=== PATIENT | male | born 1935 | race Caucasian/White ===

== ENCOUNTER 2017-04-29 13:52 | Day surgery (SDC) | payer MEDICARE, OTHER ==
[~2017-04-29] VITALS: Ht 172.7 cm; Wt 90.7 kg
[~2017-04-29 13:52] MED LIST: ASPIRIN EC325 MG PO; ATENOLOL25 MG PO; CARVEDILOL6.25 MG PO; FINASTERIDE5 MG PO; FISH OIL CONCEN1 SGL PO; IMODIUM2 MG PO; LIPITOR10 MG PO; LISINOPRIL 10MG10 MG PO; MAPAP EXTRA ST500 M1 PO; OCUVITE1 TA1 PO; RANITIDINE300 MG PO; VITAMIN D1000 IU PO; ZOFRAN4 MG PO
--- OUTSIDE RECORDS SUMMARY | 2017-04-29 14:01 | External Medical Summary Rpt | CCD ---
Author Author , LARRY JUAREZ Address Unknown Phone [email or web address] Support Name Relationship Address Phone ERSO, Next Of Kin [address] [place], [phone] [place] [address] Purpose Continuity of Care Document - 09-15-2012 through 2016 Allergies, Adverse Reactions, Alerts Type Allergy to substance Adverse Reaction to Substance Substance Reaction Severity NO KNOWN ALLERGIES Unknown Unknown Medications Na ND Rx Da Fi Fi Am Da Di Ph RX Ph St me C No te ll ll ou ys ag ar # ys at rm s nt no ma ic us Or Da si cy ia de te s n re d LI 63 04 0 No DO 32 -2 CA 30 0- Lo IN 20 20 ng E 11 13 er HC 0 L Ac 1% ti ve AL Vital Signs 09-15-2012 20:35 Name Value Interpretat Reference Comment ion Range BP 85 mm[Hg] Diastolic BP Systolic 147 mm[Hg] Heart 78 /min Rate/Pulse O2% 96 % Respiratory 20 /min Rate Encounters Encounter Start End Date Code Location Performer Type Date Emergency JESSICA Garcia MD (ER) 3 20:14 3 20:36 [facility]
--- OUTSIDE RECORDS SUMMARY | 2017-04-29 14:01 | External Medical Summary Rpt | CCD ---
Demographics Preferred Language Malay Marital Status Unknown Gnosticist Affiliation Unknown Race Unknown Ethnic Group Unknown Author Author , ELLEN JUAREZ Address Unknown Phone Immunization No patient found.
--- OUTSIDE RECORDS SUMMARY | 2017-04-29 14:01 | External Medical Summary Rpt | CCD ---
Demographics Preferred Language Greenlandic Marital Status Unknown Jainism Affiliation Unknown Race Unknown Ethnic Group Unknown Author Author , ELLEN JUAREZ Address Unknown Phone Immunization No patient found.
--- OUTSIDE RECORDS SUMMARY | 2017-04-29 14:01 | External Medical Summary Rpt ---
Author Author LARRY Rico, [employer] Organization [employer] Address Unknown Phone Unavailable
--- OUTSIDE RECORDS SUMMARY | 2017-04-29 14:01 | External Medical Summary Rpt | CCD ---
Author Author , LARRY JUAREZ Address Unknown Phone [email or web address] Support Name Relationship Address Phone EROS, Next Of Kin [address] [place] [address], [phone] [place] [address] Purpose Continuity of Care Document - 09-15-2012 [...] Garcia MD (ER) 3 20:14 3 20:36 [facility]
--- OUTSIDE RECORDS SUMMARY | 2017-04-29 14:01 | External Medical Summary Rpt | CCD ---
Author Author [employer] Organization [employer] Address Unknown Phone Unavailable Purpose Continuity of Care Document - through 2016
--- NOTE | 2017-04-29 14:12 | Emergency Room Report ---
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 N Clinical Suspician of Infection? N Mental Status: 1 - Regular (Normal Baseline) Sepsis Risk:Low Sepsis Risk Have you (or family members/close friends) recently traveled outside the [place]? N If Yes, where/when: Have you had exposure to infectious disease within the past month? N TB? Other? Specify: Comment The patient was eating turkey and dumplings at 1 PM when food lodged in his lower esophagus. Unable to swallow saliva or water since then. He had the same thing happen a couple of years ago and had it removed by endoscopy and then had his esophagus stretched. He says that he occasionally gets food stuck in that area when eating, but can wash away with water. ALLERGIES Coded Allergies: No Known Allergies (04/29/17) Home Medications Active Scripts Carvedilol (Carvedilol 6.25MG) 6.25 MG PO BID #60 TAB Ref 5 Prov: 08/21/15 LOPERAMIDE HCL (Loperamide) 2 MG PO PRN PRN LOOSE STOOL #30 CAPSULE Prov: 08/21/15 ONDANSETRON HCL (Zofran 4MG Tab) 4 MG PO Q6HP PRN NAUSEA AND VOMITING #15 TAB Ref 1 Prov: 08/21/15 Acetaminophen (Mapap) 500 MG PO Q6HP PRN MILD PAIN OR FEVER #1 TAB Prov: 08/21/15 Reported Medications Finasteride 5 MG PO DAILY Atorvastatin Calcium (Lipitor 10MG) 10 MG PO QHS CHOLECALCIFEROL (VITAMIN D3) (Vitamin D3) 1,000 IUNITS PO DAILY Multiple Vitamins W/ Minerals (Ocuvite) 1 TAB PO DAILY LISINOPRIL (Lisinopril) 10 MG PO BID Ranitidine Hydrochloride (Ranitidine) 300 MG PO QHS History Medical History General CAD? No Angina: Yes SD: Yes Hypertension? Yes Hyperlipidemia? No CHF? No DVT? No PE? No COPD? No Asthma? No Anemia? No GERD? Yes Gastric ulcers? No GI Bleed? Yes Hernia? No Thyroid Problems? No Hypothyroidism? No CVA? Yes Seizures? No Diabetes? No End Stage Renal Disease? No UTI? No Stones? No BPH? Yes GB Disease: No Nephritic Syndrome? No Asplenia? No Hepatitis? No Sickle Cell Disease? No Arthritis? No Migraines? No Cataracts? No Glaucoma? No MRSA? No HIV? No TB? No Anxiety? No Depression? No Cancer? No More? 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 LEG SURGERY Family History Family Hx Diabetes No CAD No Hypertension Yes Hyperlipidemia Yes Cancer Yes TB No Social History Smoking Hx Smoker: Never Smoker Tobacco: No Type N/A Packs/day N/A Alcohol Alcohol: No Additionial History Additional History Endoscopies and esophageal dilatation by Dr. Cabrera 2014. Review of Systems All Other Systems Reviewed and Negative Constitutional denies fever Respiratory denies shortness of breath Gastrointestinal see HPI Physical Exam Vital Signs Vital Signs Date Time Temp Pulse Resp B/P Pulse O2 O2 Flow FiO2 Ox Delivery Rate 04/29 1544 98.3 87 18 147/100 98 / 1506 98.3 87 18 147/100 98 12/ 1358 98.3 87 18 147/100 98 General Appearance no apparent distress Eye Exam - bilateral eye normal exam, bilateral eye PERRL, bilateral eye EOMI Ear, Nose, Throat hearing grossly normal, normal ENT inspection Neck normal inspection, non-tender, supple, full range of motion Respiratory Status Yes: trachea midline, chest symmetrical. No: respiratory distress. Lung Sounds bilateral: normal breath sounds, lungs clear. Cardiovascular normal exam, regular rate/rhythm, no peripheral edema, no gallop, no JVD, no murmur, no rub, normal peripheral pulses Peripheral Pulses Pulses normal Yes Gastrointestinal normal bowel sounds, normal exam, non tender, soft, no organomegaly Extremities normal inspection Neurologic alert, poor vision Mental status normal mood/affect Skin intact, normal color, warm/dry Medical Decision Making LABS/Meds/Orders Pt receiving controlled substance in ED? No Results/Orders Current Medication Orders Sig/Saba Start time Last Medication Dose Route Stop Time Status Admin Lactated Ringer's 1,000 ML .STK-MED ONE 04/29 1528 DC IV Glucagon 1 MG ONCE ONE 04/29 1415 DC 04/29 IV 04/29 1416 1446 Metoclopramide HCl 10 MG ONCE ONE 04/29 1415 DC 04/29 IVP 04/29 1416 1446 Glucagon 0 .STK-MED ONE 04/29 1402 DC .ROUTE Metoclopramide HCl 0 .STK-MED ONE 04/29 1401 DC .ROUTE Sodium Chloride 10 ML PRN PRN 04/29 1400 DCD IV 04/30 1357 Orders Procedure Date/time Status DIET-NOTHING BY MOUTH 04/29 D Active IV SALINE LOCK 04/29 135 Active Progress - 2:40 PM: No change in symptoms. Case discussed with Dr. Cabrera. He says he is coming to the emergency department to see the patient. Departure Departure Disposition Still a Patient Clinical Impression Primary Impression: Esophageal obstruction due to food impaction Condition STABLE Referrals Sang BROOKE,Arik Byers (Family) ED Critical Care Critical Care No at 0726
--- NOTE | 2017-04-29 15:20 | CONSULT NOTE ---
Standard Demographics Patient Demo Date of Consultation: 04/29/17 Referring Provider: Mendez (Ren) Reason for Consultation: Food impaction Allergies: Coded Allergies: No Known Allergies (04/29/17) History of Present Illness Chief Complaint: Unable to swallow History of Present Illness: Patient is an 81-year-old white male. He has a history of gastroesophageal reflux disease and has had prior symptoms of dysphasia and transient self- limited food impaction. In June 2014 he developed food impaction requiring emergent upper endoscopy and this was followed several weeks later with elective endoscopy with dilatation. He was in his usual state of health until approximately 1 PM today when he was eating chicken and dumplings in this became lodged. He's been unable swallow secretions and regurgitates even water. Past Medical History Reports: CAD, hypertension, GERD. Surgical History Previous Surgery?Y R. LEG SURGERY Allergies Coded Allergies: No Known Allergies (04/29/17) Medications: Active Scripts Carvedilol (Carvedilol 6.25MG) 6.25 MG PO BID #60 TAB Ref 5 Prov: 08/21/15 LOPERAMIDE HCL (Loperamide) 2 MG PO PRN PRN LOOSE STOOL #30 CAPSULE Prov: 08/21/15 ONDANSETRON HCL (Zofran 4MG Tab) 4 MG PO Q6HP PRN NAUSEA AND VOMITING #15 TAB Ref 1 Prov: 08/21/15 Acetaminophen (Mapap) 500 MG PO Q6HP PRN MILD PAIN OR FEVER #1 TAB Prov: 08/21/15 Reported Medications Finasteride 5 MG PO DAILY Atorvastatin Calcium (Lipitor 10MG) 10 MG PO QHS CHOLECALCIFEROL (VITAMIN D3) (Vitamin D3) 1,000 IUNITS PO DAILY Multiple Vitamins W/ Minerals (Ocuvite) 1 TAB PO DAILY LISINOPRIL (Lisinopril) 10 MG PO BID Ranitidine Hydrochloride (Ranitidine) 300 MG PO QHS Smoking Hx Tobacco: No Smoker: Never Smoker Type: N/A Packs/day: N/A Are you/the child exposed to second-hand smoke: No Alcohol Alcohol: No Hx of Drug Use Drug Use? No Review of Systems Constitutional No: chills. Skin No: contusions. Immune/allergy No: anaphalaxis. Respiratory No: shortness of air. Cardiovascular No: chest pain. GI No: abdomen. Physical Exam Exam General appearance no acute distress Respiratory clear to auscultation Cardiovascular normal heart sounds Plan Plan: Plan for emergent upper endoscopy with retrieval of food bolus impaction for relief of esophageal obstruction. at [id number]
--- NOTE | 2017-04-29 15:45 | RADIOLOGY REPORT PS360 ---
CHEST(2 VIEWS-NOT PORTABLE) Ordering Physician: Fredi Mendez MD Patient Age: 81 years: Male HISTORY: FOOD BOLUS STUCK IN GI TRACT . TECHNIQUE: PA and lateral chest COMPARISON :07/18/2014 AP portable chest. And the CT abdomen pelvis May lung bases August 18, 2015 FINDINGS Elevation left hemidiaphragm is again noted similar to the previous chest film heart monica and mediastinal structures appear stable including mild fullness the right paratracheal region which was also evident previously. Likely reflecting mild tortuous innominate vessel in this age patient Lungs appear clear with nothing definitely acute. There is hyperexpansion with flattening of diaphragm on the lateral view with upper normal markings at the medial right base likely reflecting cardiophrenic pad is also generous underlying hiatal hernia seen on that study as reported by the 2016 CT images. . Degenerative changes of both shoulder-compatible with long-standing underlying bilateral rotator cuff tear incidentally noted IMPRESSION: Nothing definite acute.Stable chest Hyperexpansion suggests underlying COPD. . Underlying moderate hiatal hernia better seen on the prior 2016 CT abdomen study
--- NOTE | 2017-04-29 15:53 | Operative Note ---
Endoscopy Report Date: 04/29/17 Preoperative diagnosis: Esophageal food impaction Procedure Type of procedure: Esophagogastro duodenoscopy Indications: Patient is an 81-year-old white male with history of gastroesophageal reflux disease and prior symptoms of dysphagia and transient food impaction. He did have food impaction requiring upper endoscopy in June 2014 and he had follow-up outpatient upper endoscopy one month later with dilatation. He was in his usual state of health until approximately 1 PM today when he was eating chicken and dumplings and developed symptoms consistent with esophageal food impaction with inability to swallow secretions. He would regurgitate water. He presented to the emergency department and had ongoing symptoms. Surgery was contacted and plan was made for emergent upper endoscopy. Consent was obtained and patient was taken emergently to endoscopy procedure room. He was positioned in a lateral decubitus position. Her venous sedation was achieved with anesthesia titration of propofol. Olympus endoscope was inserted via the oropharynx and advanced through the esophagus. Majority of the esophagus appeared normal. At approximately 35-40 cm from the incisors there appeared to be inflamed tissue consistent with early Schatzki's ring. This was somewhat edematous but there was no food impaction noted at this time. The endoscope was able to be advanced into the stomach which was unremarkable. Endoscope was then withdrawn as the stomach was desufflated. Findings 1. Stricture Follow-Up Follow-Up: He should maintain proton pump inhibitors. I'll see him in the office in a few weeks and likely plan for follow-up outpatient upper endoscopy for biopsies and possible dilatation. at [phone]
--- NOTE | 2017-04-29 15:59 | RADIOLOGY REPORT PS360 ---
NECK SOFT TISSUE Ordering Physician: Fredi Mendez MD Patient Age: 81 years: Male HISTORY: TURKEY IN HIS throat TECHNIQUE: THROATAP and lateral soft tissue neck COMPARISON : No relevant studies FINDINGS The prevertebral soft tissues appear normal. Epiglottis appears normal. COMPARISON study was performed with patient in expiration rather than inspiration, and with this there is suboptimal air expansion of the hypopharynx. Epiglottis is nicely visualized and appears normal. However I there is suggestion of smooth diffuse fullness along the base the tongue on this lateral image, leading down to the vallecula. This may be accentuated by the lack of air distending the hypopharynx, or however I could not exclude some abnormal fullness along the base the tongue on.-. Question fullness of the lingual tonsil lymphoid tissue along the base the tongue as well as prominent palatine tonsils giving this slightly generous soft tissue appearance. Patient Suggest close clinical follow-up & if symptoms persist follow-up .-CT neck with contrast and/or ENT follow-up would be warranted.. Lateral clinical palpation of the needs annual the mandible and submandibular region of suggested as well Upper normal prominence of soft tissues towards aryepiglottic folds also noted. No previous studies for comparison No radiopaque foreign body is seen radiographically. This was actually the primary concern clinically a stated history. Of the larynx appear to be typical central calcification. Hyoid calcification this includes calcification just anterior to the spine. Carotid calcification at the carotid bifurcations bilaterally also noted. Apices the lungs are clear degenerative changes throughout C-spine with degenerative disc space narrowing and spondylosis from C3 through C7. Disc space narrowing and spondylosis with posterior hypertrophic ridging most noted at C 4/5 C5-C6 and to lesser degree C3/4. Anterior marginal osteophytes and facet hypertrophy most evident at these levels as well. IMPRESSION 1. No radiopaque foreign bodies identified. 2. Epiglottis normal.. prevertebral soft tissues normal 3. The study was performed likely expiration, with lack of air distending the hypopharynx. Slightly limits evaluation 4. However on this study questionable prominence of the palatine tonsil shadow as well as along base the tongue , extending down to the vallecula /lingual tonsil region. Observations above of questionable significance & could be spurious but there is persistent difficulty swallowing or symptoms in this region, would suggest CT neck with contrast follow-up to evaluate these features as well as to further exclude foreign body if significant symptoms.; And/or ENT consult but may warranted if significant or persistent symptoms. 5 multilevel. Degenerative changes spine along with generous anterior marginal osteophytes. These can also encroach upon the esophagus. The calcifications seen in the region.
[2017-04-29 17:03] VITALS: BP 108/77
== END 2017-04-29 16:15 | disposition home or self-care (01) ==
LOC: ER 13:52 → SDC 15:48
PROVIDERS: Surgery
PROC: 0DJ08ZZ Inspection of Upper Intestinal Tract, Via Natural or Artificial Opening Endoscopic (ICD-10-PCS; principal; 2017-04-29 15:40)
DX: K22.2 Esophageal obstruction (principal)

== ENCOUNTER → 2017-05-15 | Outpatient (CLI) | payer MEDICARE, OTHER | LOC: RT 09:54 | DX: R13.10 Dysphagia, unspecified (principal); Z01.818 Encounter for other preprocedural examination ==